=== PATIENT | male | born 1980 | race Caucasian/White ===

== ENCOUNTER 2018-07-12 08:24 | Inpatient (IN) | payer BC ==
[~2018-07-12] VITALS: Ht 177.8 cm; Wt 100.0 kg
[2018-07-12 09:23] LABS: HEMATOCRIT 46.3 % (42.0-52.0); HEMOGLOBIN 15.8 g/dl (13.5-17.5); MEAN CORPUSCULAR HEMOGLOBIN 31.1 pg (27.0-33.0); MEAN CORPUSCULAR HGB CONC 34.1 g/dl (32.0-36.5); MEAN CORPUSCULAR VOLUME 91.1 fl (80.0-96.0); PLATELET COUNT, AUTOMATED 266 10^3/uL (150-450); RED BLOOD COUNT 5.08 10^6/uL (4.30-6.10); WHITE BLOOD COUNT 9.1 10^3/uL (4.0-10.0)
[2018-07-12 09:35] LABS: AMPHETAMINES LEVEL URINE NEGATIVE (NEGATIVE); BARBITURATES URINE NEGATIVE (NEGATIVE); BENZODIAZEPINES URINE NEGATIVE (NEGATIVE); CANNABINOIDS URINE POSITIVE (NEGATIVE); COCAINE METABOLITE URINE NEGATIVE (NEGATIVE); METHADONE URINE NEGATIVE (NEGATIVE); OPIATES URINE NEGATIVE (NEGATIVE); PHENCYCLIDINE URINE NEGATIVE (NEGATIVE)
[2018-07-12 09:58] LABS: ACETAMINOPHEN LEVEL < 2.0 UG/ML (10.0-30.0); ALBUMIN 4.4 GM/DL (3.2-5.2); ALT/SGPT 46 U/L (12-78); BILIRUBIN,DIRECT 0.2 MG/DL (0.0-0.2); BILIRUBIN,TOTAL 0.7 MG/DL (0.2-1.0); BLOOD UREA NITROGEN 12 MG/DL (7-18); CALCIUM LEVEL 9.2 MG/DL (8.5-10.1); CARBON DIOXIDE LEVEL 26 MEQ/L (21-32); CHLORIDE LEVEL 108 MEQ/L (98-107); CREATININE FOR GFR 0.98 MG/DL (0.70-1.30); ETHYL ALCOHOL (ETHANOL) < 0.003 % (0.000-0.010); GLOMERULAR FILTRATION RATE > 60.0 (>60); GLUCOSE, FASTING 101 MG/DL (70-100); POTASSIUM SERUM 4.1 MEQ/L (3.5-5.1); SALICYLATE LEVEL 2.1 MG/DL (5.0-30.0); SODIUM LEVEL 141 MEQ/L (136-145); TOTAL PROTEIN 7.5 GM/DL (6.4-8.2)
[2018-07-12] MEDS ORDERED: MONT10TA2 PO (12:38)
[2018-07-12] MEDS ORDERED: CYCL10TA PO (12:38)
[2018-07-12] MEDS ORDERED: CLON0.5T8 PO (12:38)
[2018-07-12] MEDS ORDERED: ADV250INH INH (12:38)
[2018-07-12] MEDS ORDERED: DULO1CAP2 PO (12:38)
[2018-07-12] MEDS ORDERED: DULO1CAP3 PO (12:38)
[2018-07-12] MEDS ORDERED: traZODone 50 MG TAB PO PRN (17:15)
[2018-07-12] MEDS ORDERED: MAALOX 30 ML SUSP *UDC PO PRN (17:15)
[2018-07-12] MEDS ORDERED: MOM 30ML SUSPENSION UDC PO PRN (17:15)
[2018-07-12] MEDS ORDERED: ACETAMINOPHEN TAB 650MG DOSE (2X325MG) PO PRN (17:15)
[2018-07-12 20:03] VITALS: BP 134/87
[2018-07-12] MEDS ORDERED: CYCLOBENZAPRINE 10 MG TAB PO PRN (20:45)
[2018-07-12] MEDS: MONTELUKAST 10 MG TAB PO SCH (21:12)
[2018-07-12] MEDS: clonazePAM 0.5 MG TAB PO PRN (21:12)
[2018-07-13 06:49] VITALS: BP 139/69
[2018-07-13] MEDS: NICOTINE 21MG/24HR 1 EA TRANSDERMAL TD SCH ×2 (09:00→09:40)
--- NOTE | 2018-07-13 10:58 | HPEPDOC ---
General Date of Admission Jul 12, 2018 at 17:13 Primary Care Physician: JOANNE SCOTT DO Attending Physician: JOANNE SCOTT DO Chief Complaint The patient is a 37-year-old male admitted with a reason for visit of Depressive Disorder. Source: Patient Exam Limitations: No limitations History of Present Illness This is 36 years old male with past medical history of asthma on multiple medications, history of smoking, admitted with the chief complaints of major dep ressive disorder and suicidal ideations Medical consult was called to assess medical needs Home Medications Scheduled Duloxetine Hcl (Duloxetine HCl) 60 Mg Cap, 60 MG PO QAM, (Reported) Duloxetine Hcl (Duloxetine HCl) 30 Mg Cap, 30 MG PO QHS, (Reported) Montelukast Sodium (Montelukast Sodium) 10 Mg Tab, 10 MG PO QHS, (Reported) Salmeterol/Fluticasone (Advair Diskus 250-50 Mcg/Dose) 14 Puff/Inhaler Aerp, 1 PUFF INH BID, (Reported) Scheduled PRN Clonazepam (Clonazepam) 0.5 Mg Tab, 0.5 MG PO TID PRN for ANXIETY, (Reported) Cyclobenzaprine HCl (Cyclobenzaprine HCl) 10 Mg Tab, 10 MG PO QHS PRN for MUSCLE SPASMS, (Reported) Allergies Coded Allergies: Penicillins (Verified Allergy, Unknown, 07/12/18) amoxicillin (Unverified Allergy, Unknown, 07/12/18) Past Medical History Medical History History of asthma and history of smoking Surgical History None Social History * Smoker: current smoker, greater than 1 pack/day, cigarettes Alcohol: Denies Drugs: denies Review of Systems Constitutional: Denies: Chills, Fever, Night Sweats Eyes: Denies: Pain, Vision change ENT: Denies: Head Aches, Ear Pain, Dysphagia Skin: Denies: Rash, Lesions, Breakdown Pulmonary: Denies: Dyspnea, Cough Cardiovascular: Denies: Chest Pain, Palpitations, Orthopnea, Paroxysmal Noc. Dyspnea, Lt Headedness Gastrointestinal: Denies: Nausea, Vomiting, Abdominal Pain, Diarrhea Genitourinary: Denies: Dysuria, Frequency, Incontinence, Retention Hematologic: Denies: Bruising, Bleeding Excessively Musculoskeletal: Denies: Neck Pain, Back Pain, Joint Pain, Muscle Pain, Spasms Neurological: Denies: Weakness, Numbness, Change in speech, Confusion Psych: Reports: Mood Normal; Denies: Depression, Memory Issues Physical Examination General Exam: Positive: Alert, No Acute Distress Eye Exam: Positive: PERRLA, Conjunctiva & lids normal, EOMI; Negative: Sclera icteric ENT Exam: Positive: Atraumatic, Mucous membr. moist/pink, Pharynx Normal Neck Exam: Positive: Supple; Negative: JVD, thyromegaly Chest Exam: Positive: Clear to auscultation, Normal air movement Heart Exam: Positive: Rate Normal, Regular Rhythm, Normal S1, Normal S2; Negative: Murmurs, Rubs Telemetry: Positive: No significant arrhythmia Abdomen Exam: Positive: Normal bowel sounds, Soft; Negative: Tenderness, Hepatospenomegaly Extremity Exam: Positive: Normal pulses; Negative: Clubbing, Cyanosis, Edema Skin Exam: Positive: Nl turgor and temperature; Negative: Breakdown, Lesion Neuro Exam: Positive: Normal Gait, Normal Speech, Cranial Nerves 3-12 NL, Reflexes 2+ Psych Exam: Positive: Mental status NL, Mood NL, Oriented x 3 Vital Signs Vital Signs Date Time Temp Pulse Resp B/P (MAP) Pulse Ox O2 Delivery O2 Flow Rate FiO2 07/13/18 06:49 98.5 74 14 139/69 (92) 07/12/18 19:30 100 Room Air Problems (1) Depression with suicidal ideation Status: Acute Problem Text: Further suicidal or depression management is per psychiatry (2) Asthma Problem Text: Patient is currently on Advair, albuterol, and Singulair, but he is noncompliant to his meds Will continue all home meds as is prescribed outpatient Extensive smoking cessation counseling was done and he understands the risks Plan / VTE VTE Prophylaxis Ordered?: No VTE Exclusion Mechanical Proph: Low Risk for VTE SHANTEL HOUSER MD Jul 13, 2018 10:58
[2018-07-13] MEDS: clonazePAM 0.5 MG TAB PO PRN (15:24)
[2018-07-13] MEDS ORDERED: DULoxetine 30 MG CAP (CYMBALTA) PO ONE (16:00)
--- NOTE | 2018-07-13 16:32 | MHHPE ---
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 HISTORY OF PRESENT ILLNESS: The patient moved from [place] to [place] after he got the job at [employer] in April 2018. Recently, because of his insurance problems, for 3 weeks he was without medications and relapsed on his depression, complains of decreased sleep, decreased energy, poor self esteem. Reports that he would rather be than alive and vague suicidal thoughts without any plans. Denies any history of boris. The patient has a history of generalized anxiety disorder. Current stressors are that he is unable to see his children and he thinks his life is a failure, his marriage was a failure. CURRENT MEDICATIONS: - Cymbalta 90 mg once daily - Klonopin 0.5 mg three times a day ALLERGIES: PENICILLIN, AMOXICILLIN. PAST PSYCHIATRIC HISTORY: He had one psychiatric hospitalization in [place] two years back. SUICIDAL HISTORY: Denies suicide attempts in the past. DRUGS/ALCOHOL HISTORY: The patient has a history of alcohol abuse/dependence for the last 14 years, the last time he used was about 4 or 5 days ago. He usually drinks during the weekend, four to five drinks. He also regularly smokes marijuana almost every day. LEGAL HISTORY: Denies any legal history. MEDICAL HISTORY: The patient has a history of bronchial asthma, backache. FAMILY HISTORY: His mother and father have a history of depression. PERSONAL HISTORY: He was born and raised in [place], completed high school. He has two Bachelor degrees. 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 Denies any history of physical or sexual abuse. MENTAL STATUS EXAMINATION: Appearance: Well groomed with good personal hygiene. Behavior is cooperative. Eye contact is normal. Speech is spontaneous, conversant. Mood is depressed. Affect is constricted. Thought process is linear and goal directed. Thought content: Denied any delusions. He has vague suicidal thoughts. Cognition: Alert, oriented to time, place and person. Memory in remote and recent are good. Insight and judgment are fair to limited. REVIEW OF SYSTEMS: CONSTITUTIONAL: Negative for night sweats and weight loss. HEENT: Negative for epistaxis, headache, hearing loss, sore throat. RESPIRATORY: No cough. No shortness of breath. No wheezing. CARDIOVASCULAR: Negative for chest pain, dyspnea on exertion. GASTROINTESTINAL: No abdominal pain. No change in bowel habits. GENITOURINARY: No dysuria. No trouble voiding. No hematuria. MUSCULOSKELETAL: Negative for gait disturbances, joint pain or joint swelling. NEUROLOGIC: Negative for gait disturbances, numbness, tingling. All other systems negative. VITAL SIGNS: Temperature is 98.5, pulse is 74, respiratory rate is 14, blood pressure is 139/69. LABORATORIES: Complete blood count (CBC) and comprehensive metabolic panel (CMP) within normal limits. Toxicology is positive for cannabis. DIAGNOSES: [place] I: Major depressive disorder, generalized anxiety disorder, rule out alcohol use disorder. TREATMENT/RECOMMENDATIONS: The patient will be followed up by physician's electrical assistant for medical needs. He will be seen by social welfare clerk and case management. The patient will be placed on appropriate precautions, suicidal precautions with 10 minute checks. The patient will participate in appropriate activities, which will include individual therapy, group therapy, and milieu therapy, psychoeducation and self care. MEDICATIONS: He will be placed back on Cymbalta 90 mg once daily. The patient was advised to wean himself off from Klonopin, which he agreed to. Estimated length of stay is 3 to 4 days.
[2018-07-13 18:27] VITALS: BP 139/80
[2018-07-13] MEDS: MONTELUKAST 10 MG TAB PO SCH (21:00)
[2018-07-14 06:54] VITALS: BP 136/81
[2018-07-14] MEDS: DULoxetine 30 MG CAP (CYMBALTA) PO SCH (08:06)
[2018-07-14] MEDS: NICOTINE 21MG/24HR 1 EA TRANSDERMAL TD SCH (08:07)
--- NOTE | 2018-07-14 16:38 | MHIPN ---
DATE: 07/14/2018 SUBJECTIVE: "I've been doing better; however, I had some side effects of diarrhea yesterday. 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 Patient was noncompliant with his medications. Currently back on his medications. Tolerating the medication well other than the diarrhea yesterday. MENTAL STATUS EXAMINATION: He is alert, oriented to time, place, and person with good personal hygiene, wearing clean dress. Behavior is cooperative. Eye contact is normal. Speech spontaneous. Mood is depressed. Affect is mildly constricted. Thought process is linear, goal directed. Thought content: Denied any paranoia. Denied any other delusions. Denied any suicidal thoughts. Cognition intact. Memory: Remote, recent, and immediate are good. Insight and judgment are fair to limited. VITAL SIGNS: Temperature 97.3, pulse is 77, respirations 14, blood pressure is 136/81. MEDICATIONS: - duloxetine 90 mg in the morning - trazodone 50 mg at bedtime as needed LABORATORY DATA: Urine toxicology is positive for cannabis. CBC, CMP within normal limits. DIAGNOSES: 1. Major depressive disorder. 2. Generalized anxiety disorder. 3. Rule out alcohol use disorder. ASSESSMENT: Patient is improving. Still unpredictable. PLAN: Continue current medication. Continue individual and group therapy. ESTIMATED LENGTH OF STAY: 3-4 days.
[2018-07-14 18:00] VITALS: BP 128/75
[2018-07-14] MEDS: MONTELUKAST 10 MG TAB PO SCH (20:01)
[2018-07-14] MEDS: clonazePAM 0.5 MG TAB PO PRN (20:01)
[2018-07-15 06:51] VITALS: BP 135/83
[2018-07-15] MEDS: DULoxetine 30 MG CAP (CYMBALTA) PO SCH (08:18)
[2018-07-15] MEDS: NICOTINE 21MG/24HR 1 EA TRANSDERMAL TD SCH (08:19)
[2018-07-15] MEDS: ADVAIR HFA 115/21MCG INHALER INH SCH ×2 (11:20→20:32)
[2018-07-15 18:00] VITALS: BP 140/82
--- NOTE | 2018-07-15 19:27 | MHIPN ---
DATE: 07/15/2018 SUBJECTIVE: "I am less depressed. I slept well. 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 He is tolerating the medication well. Denied any side effects. MENTAL STATUS EXAMINATION: He is alert, oriented to time, place, and person. His personal hygiene is good. Behavior is cooperative. Made good eye contact. Speech: Rate, rhythm, volume good. Mood is mildly depressed. Affect is constricted. Thought process is linear, goal directed. Thought content: Denied any suicidal or homicidal ideas. No evidence of any delusions. Denied any auditory or visual hallucinations. Insight and judgment are fair to limited. His cognition is intact. VITAL SIGNS: Temperature 97.3, pulse is 81, respirations 14, blood pressure is 135/83. LABORATORY DATA: Toxicology was positive for cannabis. Hematology was within normal limits. Chemistry was within normal limits. DIAGNOSES: 1. Major depressive disorder. 2. Generalized anxiety disorder. 3. Rule out alcohol use disorder. PLAN: Continue current medication. Continue individual and group therapy. ESTIMATED LENGTH OF STAY: 3-4 days.
[2018-07-15] MEDS: MONTELUKAST 10 MG TAB PO SCH (20:31)
[2018-07-15] MEDS: clonazePAM 0.5 MG TAB PO PRN (20:31)
[2018-07-16 06:20] VITALS: BP 143/70
[2018-07-16] MEDS: ADVAIR HFA 115/21MCG INHALER INH SCH ×2 (08:27→20:26)
[2018-07-16] MEDS: DULoxetine 30 MG CAP (CYMBALTA) PO SCH (08:27)
[2018-07-16] MEDS: NICOTINE 21MG/24HR 1 EA TRANSDERMAL TD SCH (08:28)
[2018-07-16] MEDS ORDERED: DULoxetine 30 MG CAP (CYMBALTA) PO ONE (11:00)
--- NOTE | 2018-07-16 14:11 | MHIPN ---
DATE: 07/16/2018 SUBJECTIVE: "I am still depressed, but I do not have any suicidal thoughts. I am ready to go. I should start working". 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 Currently, he is improving, however, still depressed. MENTAL STATUS EXAMINATION: He is alert. Oriented to time, place, and person. Personal hygiene is good. Speech rate, rhythm and volume are good. Behavior is cooperative. Eye contact is normal. Thought process is linear, goal directed, coherent. Thought content: Denied any suicidal or homicidal ideas. His insight and judgment are fair. Memory is intact. DIAGNOSES: 1. Major depressive disorder. 2. Generalized anxiety disorder. 3. Alcohol use disorder. VITAL SIGNS: Temperature 96.9, pulse 68, blood pressure 143/70, respirations 12. PLAN: To increase his Cymbalta to 120 mg daily. Continue individual and group therapy. Coordination of care provided to nursing staff, social work and case management. ESTIMATED LENGTH OF STAY: 2-3 days.
[2018-07-16] MEDS: clonazePAM 0.5 MG TAB PO PRN (15:39)
[2018-07-16 18:02] VITALS: BP 142/88
[2018-07-16] MEDS: MONTELUKAST 10 MG TAB PO SCH (20:25)
[2018-07-17 06:44] VITALS: BP 133/73
[2018-07-17] MEDS: ADVAIR HFA 115/21MCG INHALER INH SCH (08:32)
[2018-07-17] MEDS: NICOTINE 21MG/24HR 1 EA TRANSDERMAL TD SCH (08:34)
[2018-07-17] MEDS ORDERED: DULoxetine 30 MG CAP (CYMBALTA) PO SCH (09:00)
[2018-07-17] MEDS ORDERED: CYMB60CA3 PO (10:00)
[2018-07-17] MEDS ORDERED: ADVA115A INH (10:00)
[2018-07-17] MEDS ORDERED: CYCL10TA PO (10:00)
[2018-07-17] MEDS ORDERED: MONT10TA2 PO (10:00)
--- NOTE | 2018-07-17 16:25 | MHDS ---
DATE OF ADMISSION: 07/12/2018 DATE OF DISCHARGE: 07/17/2018 DIAGNOSES: Major depressive disorder. Generalized anxiety disorder. Rule out alcohol use disorder. 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 For details of history of the present illness, past psychiatric history, substance abuse history, medical history, social history, please refer to the initial evaluation. COURSE IN THE HOSPITAL: The patient initially was severely depressed and anxious. He was placed back on Cymbalta and the dose was titrated upwards. Patient also received individual, group and milieu therapy. He was encouraged to participate in activities. Slowly his self-esteem improved. He started interacting with peers. He slept better. His isolation decreased. He interacted well with the staff and peers. Denied any side effects from the medication, and his depression resolved. MENTAL STATUS EXAMINATION: He is alert, oriented to time, place, and person. His personal hygiene is good. Behavior is cooperative. He made good eye contact. Speech, rate and volume are good. Mood is euthymic. Affect is appropriate for the mood. Thought process: Linear, goal directed. Thought content: Denied any suicidal or homicidal ideas. There is no evidence of any delusions. Denied any auditory or visual hallucinations. Insight and judgment are good. Cognition is intact. VITAL SIGNS: Temperature 98.1, pulse is 76, respiratory rate is 14, blood pressure is 133/73. REVIEW OF SYSTEMS: Denied chest pain, palpitations. Denied abdominal pain, dysuria. Denied cough or shortness of breath. Denied dizziness, numbness. Gait is normal. LABORATORY: CBC within normal limits. Chemistry within normal limits. Urine toxicology was positive for cannabis. MEDICATIONS: Cymbalta 120 mg in the morning, trazodone 50 mg nightly as needed. Patient will be following up with [facility]. He will be going home.
== END 2018-07-17 11:20 | disposition home or self-care (01) | DRG 754 ==
LOC: M ED 08:24 → M ED INP 17:13 → M PSY 19:53
PROVIDERS: ADMIT Psychiatry & Neurology Psychiatry; ATTEND Psychiatry & Neurology Psychiatry
DX: F32.9 Major depressive disorder, single episode, unspecified (principal); R45.851 Suicidal ideations; F41.1 Generalized anxiety disorder; F10.10 Alcohol abuse, uncomplicated; Z88.0 Allergy status to penicillin; Z79.899 Other long term (current) drug therapy; J45.909 Unspecified asthma, uncomplicated; F17.210 Nicotine dependence, cigarettes, uncomplicated

== ENCOUNTER → 2018-07-12 | Outpatient (REF) | payer BC ==
[~2018-07-12] MED LIST: ADV250INH INH; ADVA115A INH; CLON0.5T8 PO; CYCL10TA PO; CYMB60CA3 PO; DULO1CAP2 PO; DULO1CAP3 PO; MONT10TA2 PO
== END ==
LOC: M SFHCPLAZ 07:53
PROVIDERS: ATTEND Nurse Practitioner Family
DX: Z53.9 Procedure and treatment not carried out, unspecified reason (principal); Z00.00 Encounter for general adult medical examination without abnormal findings; F33.2 Major depressive disorder, recurrent severe without psychotic features; F41.1 Generalized anxiety disorder; Z13.220 Encounter for screening for lipoid disorders; Z68.31 Body mass index [BMI] 31.0-31.9, adult

== ENCOUNTER → 2018-12-07 | Outpatient (CLI) | payer MEDICAID ==
[~2018-12-07] MED LIST changes: +CLON0.5T2 PO; -CLON0.5T8 PO; -DULO1CAP2 PO; -DULO1CAP3 PO; +DULO1CAP5 PO; +DULO1CAP6 PO
== END ==
LOC: M OUTALCOH 08:28
PROVIDERS: ATTEND Psychiatry & Neurology Psychiatry
DX: F12.20 Cannabis dependence, uncomplicated (principal); F10.10 Alcohol abuse, uncomplicated

== ENCOUNTER 2018-12-31 09:00 | Outpatient (RCR) | payer MEDICAID ==
[~2018-12-31 09:00] MED LIST changes: -CLON0.5T2 PO; +CLON0.5T8 PO
== END 2019-01-07 ==
LOC: M OUTALCOH 09:00
PROVIDERS: ATTEND Psychiatry & Neurology Psychiatry
DX: F10.10 Alcohol abuse, uncomplicated (principal); F12.20 Cannabis dependence, uncomplicated; F17.200 Nicotine dependence, unspecified, uncomplicated

== ENCOUNTER → 2019-01-17 | Outpatient (REF) | payer OTHER | LOC: M SFHCPLAZ 11:36 | PROVIDERS: ATTEND Nurse Practitioner Family | DX: Z53.9 Procedure and treatment not carried out, unspecified reason (principal) ==